=== PATIENT | male | born 1970 ===

== ENCOUNTER 2019-02-18 00:13 | Observation (INO) ==
[2019-02-18] MEDS ORDERED: Nitroglycerin 0.4 MG TAB.SUBL SL PRN (01:24)
[2019-02-18] MEDS ORDERED: Aspirin 81 MG TAB.CHEW PO ONE (01:24)
[2019-02-18 01:27] LABS: Basophils # 0.1 K/mcL (0.0-0.2); Basophils % 0.8 %; Eosinophils # 0.7 K/mcL (0.0-0.6); Eosinophils % 5.3 %; Hematocrit 41.3 % (37.5-50.1); Hemoglobin 13.3 g/dL (12.9-16.9); Immature Granulocytes % 0.2 % (0-4); Lymphocytes # 3.6 K/mcL (0.6-4.6); Lymphocytes % 29.2 %; Mean Corpuscular HGB Conc 32.2 g/dL (31.6-35.5); Mean Corpuscular Hemoglobin 29.3 pg (28.0-33.3); Mean Platelet Volume 11.3 fL (9.4-12.4); Monocytes # 0.9 K/mcL (0.0-1.3); Monocytes % 7.6 %; Neutrophils # 7.1 K/mcL (1.6-8.9); Platelet Count 287 K/mcL (140-400); Red Blood Count 4.54 M/mcL (4.19-5.50); Red Cell Distribution Width 14.5 % (11.5-14.5); Segmented Neutrophils % 56.9 %
--- NOTE | 2019-02-18 01:46 | Emergency Department Note ---
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 Patient states that he was seen by his primary care physician on Tuesday who performed a physical exam but did not perform any testing and stated that he should get checked out. Patient came to the emergency department tonight because it was weighing on his mind that something might be wrong. Patient describes his pain as sharp in nature, coming and going, does not seem to be related to exertion, he cannot make the pain better, he cannot make the pain worse. Patient was prescribed nitroglycerin for this pain but did not try any while at home because he states that this medication "scares him". Patient is denying associated symptoms of nausea, vomiting, diaphoresis. Patient is complaining of some mild lightheadedness. Severity scale (1-10): 6 - Related Data Home Medications Medication Instructions Recorded Confirmed Aspirin [Adult Aspirin] 81 mg PO DAILY 10/09/18 10/10/18 Baclofen [Lioresal] 10 mg PO TID PRN 10/09/18 10/10/18 Cilostazol [Pletal] 100 mg PO BID 10/09/18 10/10/18 Levothyroxine [Synthroid] 125 mcg PO 0630 10/09/18 10/10/18 Omeprazole [PriLOSEC] 40 mg PO DAILY 10/09/18 10/10/18 clonazePAM [Klonopin] 1 mg PO BID PRN 10/09/18 10/10/18 Cholecalciferol (D-3) [Vitamin D] 5,000 unit PO QAM 10/10/18 10/10/18 Citalopram Hydrobromide 10 mg PO DAILY 10/10/18 10/10/18 [Citalopram HBr] raNITIdine HCl [Zantac] 150 mg PO HS 10/10/18 10/10/18 Allergies Allergy/AdvReac Type Severity Reaction Status Date / Time Sulfa (Sulfonamide Allergy Anaphylaxis Verified 02/18/19 00:18 Antibiotics) Review of Systems: All systems ED: reviewed and negative except as stated. Constitutional: Denies: fever, chills ENT ED: Denies: ear pain, throat pain Cardiovascular: Denies: palpitations Reports: chest pain Respiratory: Denies: cough, dyspnea Gastrointestinal: Denies: abdominal pain, nausea, vomiting, diarrhea, constipation Genitourinary: Denies: urgency, dysuria, frequency Musculoskeletal: Denies: back pain, neck pain Integumentary: Denies: rash, abrasion Neurological: Denies: headache, weakness, numbness, paresthesias Reports: lightheadedness Psychiatric: Denies: anxiety, depression Endocrine: Denies: fatigue, heat or cold intolerance Hematological/Lymphatic: Denies: easy bleeding, easy bruising Allergic/Immunologic: Denies: facial swelling, urticaria Chest Pain PMH - Past Medical History Medical history: Reports: arthritis, coronary artery disease, peripheral artery disease, thyroid disease, other Surgical history: Reports: no surgical history Psychiatric history: Reports: anxiety - Social History Smoking Status: Current every day smoker Alcohol use: Reports: occasionally Drug use: Reports: none Physical Exam General: A&O x 3. No acute distress. Well developed, well nourished. Head: atraumatic, normocephalic. ENT: No conjunctival injection, no scleral icterus. PERRLA. EOMI. Oropharynx non- erythematous. mucous membranes tacky. Neuro: No focal deficits, no speech deficit, no facial droop, mentating well. BUE/BLE Str 5/5. Pulm: Lungs CTAB A/P. No wheezes, rales, ronchi. Cardio: RRR no m/r/g. Chest not tender to palpation. Abd: Soft, non-distended. Normoactive bowel sounds. Non-tender to palpation. No guarding. Non rigid. Extremities: Radial pulses 2+ lexy, dorsalis pedis/posterior tibialis 2+ lexy. No LE edema. No cyanosis, clubbing. Skin: warm, dry, intact. No rashes. Psych: Appropriate mood and affect. Answers questions appropriately. Cooperative with exam. - General Limitations: no limitations General appearance: alert Course Course Narrative: Will perform chest pain workup. Suspect admission. Vital Signs Temperature 97.8 F 02/18/19 00:21 Pulse Rate 68 02/18/19 00:21 Respiratory Rate 20 02/18/19 00:21 Blood Pressure 107/69 02/18/19 00:21 O2 Sat by Pulse Oximetry 99 02/18/19 00:21 Temperature 97.8 F 02/18/19 00:21 Pulse Rate 57 02/18/19 02:43 Respiratory Rate 16 02/18/19 02:43 Blood Pressure 111/72 02/18/19 02:43 O2 Sat by Pulse Oximetry 96 02/18/19 02:43 Oxygen Delivery Oxygen Delivery Room Air Chest Pain - MDM Narrative Medical decision making narrative: Pts troponin was elevated at 0.04. CXR did not show any acute cardiopulmonary processes. EKG did not demonstrate any findings consistent with ischemia. The rest of the lab work was unremarkable. Pt could benefit from further workup given his cardiac history. Pt was admitted to hospitalist, Dr. Moe, who agreed to accept the pt to his service. Patient was given an opportunity to ask questions at bedside and all of their concerns were addressed. Patient verbalized understanding and agreement with plan of care. Pt remained stable while in the department. - Medical Records Medical records reviewed: Yes I reviewed the patient's medical records. - Lab Data Lab results reviewed: Yes I reviewed the patient's lab results. Result diagrams: 02/18/19 01:12 02/18/19 01:12 Lab Results 02/18/19 02/18/19 02/18/19 Range/Units 01:12 01:12 01:13 WBC 12.4 H (4.3-11.1) K/mcL RBC 4.54 (4.19-5.50) M/mcL Hgb 13.3 (12.9-16.9) g/dL Hct 41.3 (37.5-50.1) % MCV 91.0 (83.0-100.0) fL MCH 29.3 (28.0-33.3) pg MCHC 32.2 (31.6-35.5) g/dL RDW 14.5 (11.5-14.5) % Plt Count 287 (140-400) K/mcL MPV 11.3 (9.4-12.4) fL Immature Gran % 0.2 (0-4) % Seg Neutrophils % 56.9 % Lymphocytes % 29.2 % Monocytes % 7.6 % Eosinophils % 5.3 % Basophils % 0.8 % Neutrophils # 7.1 (1.6-8.9) K/mcL Lymphocytes # 3.6 (0.6-4.6) K/mcL Monocytes # 0.9 (0.0-1.3) K/mcL Eosinophils # 0.7 H (0.0-0.6) K/mcL Basophils # 0.1 (0.0-0.2) K/mcL PT 11.3 (9.4-12.1) Seconds INR 1.0 APTT 37.5 H (26.0-36.0) Seconds Sodium 139 (136-145) mEq/L Potassium 3.8 (3.5-5.1) mEq/L Chloride 108 H (98-107) mEq/L Carbon Dioxide 22 L (23-29) mEq/L BUN 16 (6-20) mg/dL Creatinine 1.02 (0.70-1.30) mg/dL Est GFR ( Amer) > 60 (> 60) Est GFR (Non-Af Amer) > 60 (> 60) BUN/Creatinine Ratio 16 (6-26) Glucose 114 H (70-105) mg/dL Calculated Osmolality 290 (280-300) Calcium 9.3 (8.6-10.3) mg/dL Total Bilirubin 0.3 (0.3-1.0) mg/dL AST 20 (13-39) Units/L ALT 24 (7-52) Units/L Alkaline Phosphatase 124 H (34-104) Units/L Troponin I 0.04 H* (< 0.04) ng/mL B-Natriuretic Peptide (Less than 100) pg/mL Serum Total Protein 7.1 (6.4-8.9) g/dL Albumin 4.1 (3.5-5.7) g/dL Globulin 3.0 (2.4-3.5) g/dL Albumin/Globulin Ratio 1.4 (1.1-2.2) Urine Color (Yellow) Urine Clarity (Clear) Urine pH (5.0-8.0) pH Units Ur Specific [place] (1.010-1.025) Urine Protein (Neg-Trace) mg/dL Urine Glucose (UA) (Normal) mg/dL Urine Ketones (Negative) mg/dL Urine Blood (Negative) Urine Nitrite (Negative) Urine Bilirubin (Negative) Urine Urobilinogen (Normal) mg/dL Ur Leukocyte Esterase (Negative) Ur Culture Indicated? (NO) 02/18/19 02/18/19 Range/Units 01:13 01:50 WBC (4.3-11.1) K/mcL RBC (4.19-5.50) M/mcL Hgb (12.9-16.9) g/dL Hct (37.5-50.1) % MCV (83.0-100.0) fL MCH (28.0-33.3) pg MCHC (31.6-35.5) g/dL RDW (11.5-14.5) % Plt Count (140-400) K/mcL MPV (9.4-12.4) fL Immature Gran % (0-4) % Seg Neutrophils % % Lymphocytes % % Monocytes % % Eosinophils % % Basophils % % Neutrophils # (1.6-8.9) K/mcL Lymphocytes # (0.6-4.6) K/mcL Monocytes # (0.0-1.3) K/mcL Eosinophils # (0.0-0.6) K/mcL Basophils # (0.0-0.2) K/mcL PT (9.4-12.1) Seconds INR APTT (26.0-36.0) Seconds Sodium (136-145) mEq/L Potassium (3.5-5.1) mEq/L Chloride (98-107) mEq/L Carbon Dioxide (23-29) mEq/L BUN (6-20) mg/dL Creatinine (0.70-1.30) mg/dL Est GFR ( Amer) (> 60) Est GFR (Non-Af Amer) (> 60) BUN/Creatinine Ratio (6-26) Glucose (70-105) mg/dL Calculated Osmolality (280-300) Calcium (8.6-10.3) mg/dL Total Bilirubin (0.3-1.0) mg/dL AST (13-39) Units/L ALT (7-52) Units/L Alkaline Phosphatase (34-104) Units/L Troponin I (< 0.04) ng/mL B-Natriuretic Peptide 36 (Less than 100) pg/mL Serum Total Protein (6.4-8.9) g/dL Albumin (3.5-5.7) g/dL Globulin (2.4-3.5) g/dL Albumin/Globulin Ratio (1.1-2.2) Urine Color Yellow (Yellow) Urine Clarity Clear (Clear) Urine pH 6.0 (5.0-8.0) pH Units Ur Specific [place] 1.012 (1.010-1.025) Urine Protein Negative (Neg-Trace) mg/dL Urine Glucose (UA) Normal (Normal) mg/dL Urine Ketones Negative (Negative) mg/dL Urine Blood Negative (Negative) Urine Nitrite Negative (Negative) Urine Bilirubin Negative (Negative) Urine Urobilinogen Normal (Normal) mg/dL Ur Leukocyte Esterase Negative (Negative) Ur Culture Indicated? NO (NO) - Radiology Data Radiology results reviewed: Yes I reviewed the patient's radiology results. Chest X-Ray 02/18/19 01:24 IMPRESSION: Negative portable chest. D/ / Stephen Guzman MD / Stephen Guzman MD Interpreting Provider: Stephen Guzman MD - EKG Data EKG attestation: Yes I reviewed and interpreted this EKG. EKG results narrative: HR 66, rhythm sinus, axis normal. LA 176, QRS 109, QTc 437. No evidence of ST elevation or depression. Heart Score - Score History: Moderately Suspicious EKG: Non Specific repolarisation Disturbance Age: 45-65 Risk Factors: Equal/Greater than 3 risk factor or history of atherosclerotic disease Troponin: 1-3x normal limit HEART Score Total: 6 Attestation Statement - Attestation Attestation: I, Micha Nickerson DO, examined this patient [id number] and my medical decision-making was reviewed with Dr. Cornelia Muhammad, Resident Physician. I agree with the documented findings, disposition and treatment plan as described except to the extent set forth below. I personally supervised and was present for the ulrich/critical portions of the procedures completed by the resident documented below. Please see my progress notes for details.
[2019-02-18 01:47] LABS: Alanine Aminotransferase 24 Units/L (7-52); Albumin 4.1 g/dL (3.5-5.7); Albumin/Globulin Ratio 1.4 (1.1-2.2); Alkaline Phosphatase 124 Units/L (34-104); Aspartate Amino Transferase 20 Units/L (13-39); BUN/Creatinine Ratio 16 (6-26); Bilirubin,Total 0.3 mg/dL (0.3-1.0); Blood Urea Nitrogen 16 mg/dL (6-20); Calcium 9.3 mg/dL (8.6-10.3); Carbon Dioxide 22 mEq/L (23-29); Chloride 108 mEq/L (98-107); Glucose 114 mg/dL (70-105); Osmolality,Calculated 290 (280-300); Potassium 3.8 mEq/L (3.5-5.1); Sodium 139 mEq/L (136-145); Total Protein 7.1 g/dL (6.4-8.9); eGFR For Non-African Americans > 60 (> 60)
[2019-02-18 02:00] LABS: Prothrombin Time 11.3 Seconds (9.4-12.1)
[2019-02-18 02:00] LABS: Troponin I 0.04 ng/mL (< 0.04)
[2019-02-18 02:00] LABS: Bilirubin,Urine Negative (Negative); Blood,Urine Negative (Negative); Clarity,Urine Clear (Clear); Color,Urine Yellow (Yellow); Glucose,Urine (UA) Normal (Normal); Ketones,Urine Negative (Negative); Leukocyte Esterase,Urine Negative (Negative); Nitrite,Urine Negative (Negative); Protein,Urine Negative (Neg-Trace); Specific Gravity,Urine 1.012 (1.010-1.025); Urobilinogen,Urine Normal (Normal)
[2019-02-18 02:03] LABS: Activated Partial Thrombo Time 37.5 Seconds (26.0-36.0)
--- NOTE | 2019-02-18 04:06 | Emergency Department Note ---
Disposition Clinical Impression: Elevated troponin Chest pain Qualifiers: Chest pain type: unspecified Qualified Code(s): R07.9 - Chest pain, unspecified Disposition: Admitted As Inpatient Condition: Fair Referrals: Rosa Maria Mayer MD [Primary Care Provider] - Time of Disposition: 04:06 General Adult HPI - General Chief complaint: ED Chest Pain Stated complaint: CP, Bilat Jaw/R Neck Pain x 4days Time Seen by Provider: 02/18/19 01:23 Source: patient Mode of arrival: private vehicle Limitations: no limitations - History of Present Illness Pain Scale: 6 - Related Data Home Medications Medication Instructions Recorded Confirmed Aspirin [Adult Aspirin] 81 mg PO DAILY 10/09/18 10/10/18 Baclofen [Lioresal] 10 mg PO TID PRN 10/09/18 10/10/18 Cilostazol [Pletal] 100 mg PO BID 10/09/18 10/10/18 Levothyroxine [Synthroid] 125 mcg PO 0630 10/09/18 10/10/18 Omeprazole [PriLOSEC] 40 mg PO DAILY 10/09/18 10/10/18 clonazePAM [Klonopin] 1 mg PO BID PRN 10/09/18 10/10/18 Cholecalciferol (D-3) [Vitamin D] 5,000 unit PO QAM 10/10/18 10/10/18 Citalopram Hydrobromide 10 mg PO DAILY 10/10/18 10/10/18 [Citalopram HBr] raNITIdine HCl [Zantac] 150 mg PO HS 10/10/18 10/10/18 Allergies Allergy/AdvReac Type Severity Reaction Status Date / Time Sulfa (Sulfonamide Allergy Anaphylaxis Verified 02/18/19 00:18 Antibiotics) Past Medical History - Past Medical History Medical history: Reports: arthritis, coronary artery disease, peripheral artery disease, thyroid disease, other Surgical history: Reports: no surgical history Psychiatric history: Reports: anxiety - Social History Smoking Status: Current every day smoker Smokeless Tobacco Status: No Alcohol use: Reports: occasionally Drug use: Reports: none Physical Exam - General Limitations: no limitations General appearance: alert Course Vital Signs Temperature 97.8 F 02/18/19 00:21 Pulse Rate 68 02/18/19 00:21 Respiratory Rate 20 02/18/19 00:21 Blood Pressure 107/69 02/18/19 00:21 O2 Sat by Pulse Oximetry 99 02/18/19 00:21 Temperature 97.8 F 02/18/19 00:21 Pulse Rate 57 02/18/19 02:43 Respiratory Rate 16 02/18/19 02:43 Blood Pressure 111/72 02/18/19 02:43 O2 Sat by Pulse Oximetry 96 02/18/19 02:43 Oxygen Delivery Oxygen Delivery Room Air Medical Decision Making - Lab Data Result diagrams: 02/18/19 01:12 02/18/19 01:12 Lab Results 02/18/19 02/18/19 02/18/19 Range/Units 01:12 01:12 01:13 WBC 12.4 H (4.3-11.1) K/mcL RBC 4.54 (4.19-5.50) M/mcL Hgb 13.3 (12.9-16.9) g/dL Hct 41.3 (37.5-50.1) % MCV 91.0 (83.0-100.0) fL MCH 29.3 (28.0-33.3) pg MCHC 32.2 (31.6-35.5) g/dL RDW 14.5 (11.5-14.5) % Plt Count 287 (140-400) K/mcL MPV 11.3 (9.4-12.4) fL Immature Gran % 0.2 (0-4) % Seg Neutrophils % 56.9 % Lymphocytes % 29.2 % Monocytes % 7.6 % Eosinophils % 5.3 % Basophils % 0.8 % Neutrophils # 7.1 (1.6-8.9) K/mcL Lymphocytes # 3.6 (0.6-4.6) K/mcL Monocytes # 0.9 (0.0-1.3) K/mcL Eosinophils # 0.7 H (0.0-0.6) K/mcL Basophils # 0.1 (0.0-0.2) K/mcL PT 11.3 (9.4-12.1) Seconds INR 1.0 APTT 37.5 H (26.0-36.0) Seconds Sodium 139 (136-145) mEq/L Potassium 3.8 (3.5-5.1) mEq/L Chloride 108 H (98-107) mEq/L Carbon Dioxide 22 L (23-29) mEq/L BUN 16 (6-20) mg/dL Creatinine 1.02 (0.70-1.30) mg/dL Est GFR ( Amer) > 60 (> 60) Est GFR (Non-Af Amer) > 60 (> 60) BUN/Creatinine Ratio 16 (6-26) Glucose 114 H (70-105) mg/dL Calculated Osmolality 290 (280-300) Calcium 9.3 (8.6-10.3) mg/dL Total Bilirubin 0.3 (0.3-1.0) mg/dL AST 20 (13-39) Units/L ALT 24 (7-52) Units/L Alkaline Phosphatase 124 H (34-104) Units/L Troponin I 0.04 H* (< 0.04) ng/mL B-Natriuretic Peptide (Less than 100) pg/mL Serum Total Protein 7.1 (6.4-8.9) g/dL Albumin 4.1 (3.5-5.7) g/dL Globulin 3.0 (2.4-3.5) g/dL Albumin/Globulin Ratio 1.4 (1.1-2.2) Urine Color (Yellow) Urine Clarity (Clear) Urine pH (5.0-8.0) pH Units Ur Specific [place] (1.010-1.025) Urine Protein (Neg-Trace) mg/dL Urine Glucose (UA) (Normal) mg/dL Urine Ketones (Negative) mg/dL Urine Blood (Negative) Urine Nitrite (Negative) Urine Bilirubin (Negative) Urine Urobilinogen (Normal) mg/dL Ur Leukocyte Esterase (Negative) Ur Culture Indicated? (NO) 02/18/19 02/18/19 Range/Units 01:13 01:50 WBC (4.3-11.1) K/mcL RBC (4.19-5.50) M/mcL Hgb (12.9-16.9) g/dL Hct (37.5-50.1) % MCV (83.0-100.0) fL MCH (28.0-33.3) pg MCHC (31.6-35.5) g/dL RDW (11.5-14.5) % Plt Count (140-400) K/mcL MPV (9.4-12.4) fL Immature Gran % (0-4) % Seg Neutrophils % % Lymphocytes % % Monocytes % % Eosinophils % % Basophils % % Neutrophils # (1.6-8.9) K/mcL Lymphocytes # (0.6-4.6) K/mcL Monocytes # (0.0-1.3) K/mcL Eosinophils # (0.0-0.6) K/mcL Basophils # (0.0-0.2) K/mcL PT (9.4-12.1) Seconds INR APTT (26.0-36.0) Seconds Sodium (136-145) mEq/L Potassium (3.5-5.1) mEq/L Chloride (98-107) mEq/L Carbon Dioxide (23-29) mEq/L BUN (6-20) mg/dL Creatinine (0.70-1.30) mg/dL Est GFR ( Amer) (> 60) Est GFR (Non-Af Amer) (> 60) BUN/Creatinine Ratio (6-26) Glucose (70-105) mg/dL Calculated Osmolality (280-300) Calcium (8.6-10.3) mg/dL Total Bilirubin (0.3-1.0) mg/dL AST (13-39) Units/L ALT (7-52) Units/L Alkaline Phosphatase (34-104) Units/L Troponin I (< 0.04) ng/mL B-Natriuretic Peptide 36 (Less than 100) pg/mL Serum Total Protein (6.4-8.9) g/dL Albumin (3.5-5.7) g/dL Globulin (2.4-3.5) g/dL Albumin/Globulin Ratio (1.1-2.2) Urine Color Yellow (Yellow) Urine Clarity Clear (Clear) Urine pH 6.0 (5.0-8.0) pH Units Ur Specific [place] 1.012 (1.010-1.025) Urine Protein Negative (Neg-Trace) mg/dL Urine Glucose (UA) Normal (Normal) mg/dL Urine Ketones Negative (Negative) mg/dL Urine Blood Negative (Negative) Urine Nitrite Negative (Negative) Urine Bilirubin Negative (Negative) Urine Urobilinogen Normal (Normal) mg/dL Ur Leukocyte Esterase Negative (Negative) Ur Culture Indicated? NO (NO) Attestation Statement - Attestation Attestation: I, Micha Nickerson DO, examined this patient [id number] and my medical decision-making was reviewed with Dr. Cornelia Muhammad, Resident Physician. I agree with the documented findings, disposition and treatment plan as described except to the extent set forth below. I personally supervised and was present for the ulrich/critical portions of the procedures completed by the resident documented below. Please see my progress notes for details. 48-year-old male presents emergency room with complaint of chest pain. Patient has had a recent cardiac bypass procedure completed and September of last year. He has had intermittent chest pain on and off for the last several months. Today he had sustained chest pain despite intervention at home. He was concerned said come the emergency room for evaluation. On my evaluation at the bedside, the patient is denying chest pain shortness of breath headache vision changes nausea vomiting or diarrhea. He does not have any fevers or chills. He denies any falls trauma or injury. Patient did take nitroglycerin prior to coming in and does appear to alleviate the symptoms. Patient will have detailed workup completed this time with cardiac evaluation. Patient will have EKG chest x-ray CBC chemistry and troponin collected along with BMP and electrolytes. Patient will be provided with an aspirin. He is currently on Eliquis at home. Vital signs are stable. Patient is alert he is oriented. Oropharynx is patent. Trachea is midline. Lungs are clear. Heart is regular. Abdomen is soft nontender nondistended with no guarding no rigidity and no per itoneal symptoms at this time. No signs of pitting edema or swelling in extremities. Patient is walking around the emergency department without any distress. He does not have any exertional component to the presentation at this time. Disposition will most likely be admission secondary to the persistence the symptoms here today. Patient was informed of this and is comfortable with the plan. No other additional concerns or issues noted this point. See detailed documentation of the physical exam, medical intervention, medical decision-making and disposition in the resident physician's note. No critical care pad the patient's treatment course at this time. [id number] Patient has an elevated troponin of 0.04. He has remained chest pain-free while here. Because of the most recent bypass procedure, as well as the presenting complaint of chest pain, the patient will be admitted for monitoring. No immediate intervention has been required at this time. The hospitalist reviewed the case at length. He had no other recommendations or concerns at this time. Patient will be monitoring emergency room until the admission process is completed. Patient family are informed and they are comfortable this plan.
[2019-02-18] MEDS ORDERED: Naloxone 0.4 MG/ML INJ IVP PRN (04:51)
--- NOTE | 2019-02-18 05:28 | Internal Med History&Physical ---
Date of Encounter: 02/18/19 Time of Encounter: 04:00 Internal Medicine - H&P: HPI Chief complaint: Chest Pain Admitted From: Home Plans for Post Hospital Care: Home History of present illness: Mr. Perez is a 48 year old male with past medical history significant CAD with CABG, NSTEMI, PAD, thyroid disease, GERD, multiple sclerosis, and tobacco abuse who presents for complaints of intermittent left sided aching chest pain for past 4-5 days radiating to his bilateral shoulders and right jaw. Pain is rated at 5/10 when at its worst and typically only lasts 5-15 minutes. No identifiable exacerbating or alleviating factors. Episodes have been occurring more often over past 4-5 days but have not increased in severity. Pain is associated with shortness of breath and headache. Also states he has intermittent lightheadedness at home which he experiences chronically due to his MS and does not relate it to his recent symptoms. Has nitro at home but states he was afraid to take any. Seen PCP on Tuesday to advise to get further evaluation at hospital if symptoms continue. Pain was resolved upon arrival to [facility] so received only dose of aspirin in ER. ER reported EKG as sinus rhythm with no evidence of ST elevation or depression. ER also obtained chest xray which showed a negative portable chest. Currently denies any headache, dizziness, numbness, chest pain, shortness of breath, abdominal pain, nausea, bowel or bladder changes. In September 2018 had echocardiogram showing 40-45% EF and cardiac catheterization showing stenosis of LMCA, proximal and mid LAD, proximal circumflex, and proximal and mid RCA. He then underwent a CABG x5. Follows up regularly with [place] [facility]ology following CABG. Also follows regularly with PCP and [facility] neurology. Past Med Surg Social Fam HX - Past Medical History Medical history: arthritis, coronary artery disease, GERD, peripheral artery disease, thyroid disease, other Additional medical history: Multiple Sclerosis Psychiatric history: anxiety - Past Surgical History Surgical History: no surgical history Additional surgical history: CABG x 5v - Social History Smoking Status: Current every day smoker Smokeless Tobacco Status: No Alcohol use: occasionally Drug use: none - Family History Mother Living Status: Hx Family Cardiac Disorders: Yes (Triple Bypass) Hx Family Respiratory Disorders: Yes (Lung Cancer) Brother Living Status: Still Living Hx Family Cardiac Disorders: Yes (premature CAD < 50) Internal Medicine - H&P: Meds Aspirin [Adult Aspirin] 81 mg PO DAILY 10/09/18 [History] Cilostazol [Pletal] 100 mg PO BID 10/09/18 [History] Levothyroxine [Synthroid] 125 mcg PO 0630 10/09/18 [History] Omeprazole [PriLOSEC] 40 mg PO DAILY 10/09/18 [History] clonazePAM [Klonopin] 1 mg PO BID PRN 10/09/18 [History] Cholecalciferol (D-3) [Vitamin D] 5,000 unit PO QAM 10/10/18 [History] Citalopram Hydrobromide [Citalopram HBr] 10 mg PO DAILY 10/10/18 [History] raNITIdine HCl [Zantac] 150 mg PO HS 10/10/18 [History] Allergy/AdvReac Type Severity Reaction Status Date / Time Sulfa (Sulfonamide Allergy Anaphylaxis Verified 02/18/19 00:18 Antibiotics) All Systems PM: A 10-system review of systems was performed and is negative for pertinent findings except as documented above in the HPI. - Constitutional Vitals: Temp Pulse Resp BP Pulse Ox 97.8 F 51 20 97/55 99 02/18/19 00:21 02/18/19 03:30 02/18/19 04:30 02/18/19 04:30 02/18/19 03:30 Exam: General: Alert and oriented. Skin:Normal color, no rash, no lesions. HEENT:Pupils equal, round and reactive. Cardiovascular:Normal S1 & S2, no rubs, murmurs or gallops. No JVD. Pulse regular. Chest wall remains tender to palpation since CABG. Lungs:Normal breath sounds, no wheezes or crackles. Abdomen:Soft, non-tender, no rigidity. Extremities:No deformity, no edema or tenderness, no joint swelling or clubbing. Neurological:Normal cognition and motor skills. Pulses:Carotid and radial pulses normal +2. Rest of the physical exam is non contributory. Internal Med - H&P Results - Labs CBC & Chem 7: 02/18/19 01:12 02/18/19 01:12 Labs: Short CBC 02/18/19 Range/Units 01:12 WBC 12.4 H (4.3-11.1) K/mcL Hgb 13.3 (12.9-16.9) g/dL Hct 41.3 (37.5-50.1) % Plt Count 287 (140-400) K/mcL Neutrophils # 7.1 (1.6-8.9) K/mcL BMP 02/18/19 01:12 Sodium 139 Potassium 3.8 Chloride 108 H Carbon Dioxide 22 L BUN 16 Creatinine 1.02 Glucose 114 H Calcium 9.3 Cardiac Enzymes 02/18/19 Range/Units 01:12 Troponin I 0.04 H* (< 0.04) ng/mL Liver Function 02/18/19 Range/Units 01:12 Total Bilirubin 0.3 (0.3-1.0) mg/dL AST 20 (13-39) Units/L ALT 24 (7-52) Units/L Alkaline Phosphatase 124 H (34-104) Units/L Albumin 4.1 (3.5-5.7) g/dL Urine 02/18/19 Range/Units 01:50 Urine Color Yellow (Yellow) Urine Clarity Clear (Clear) Urine pH 6.0 (5.0-8.0) pH Units Ur Specific [place] 1.012 (1.010-1.025) Urine Protein Negative (Neg-Trace) mg/dL Urine Glucose (UA) Normal (Normal) mg/dL - Impressions ITS Impressions Chest X-Ray 02/18/19 01:24 IMPRESSION: Negative portable chest. D/ / Stephen Guzman MD / Stephen Guzman MD Interpreting Provider: Stephen Guzman MD - Assessment and Plan (1) Chest pain Current Visit: Yes Status: Acute Assessment and plan: Resolved since presentation to ER. ER reported EKG as sinus rhythm with no evidence of ST elevation or depression. Initial troponin 0.04, serial troponins ordered. Continuous cardiac monitoring. Cardiology consult ordered, will need called in a.m. Qualifiers: Chest pain type: unspecified Qualified Code(s): R07.9 - Chest pain, unspecified (2) Increased white blood cell count Current Visit: Yes Status: Acute Assessment and plan: Slightly elevated at 12.4 No signs of infection. Chest xray and UA negative. Repeat labs ordered. Qualifiers: Leukocytosis type: unspecified Qualified Code(s): D72.829 - Elevated white blood cell count, unspecified (3) Multiple sclerosis Current Visit: No Status: Chronic Assessment and plan: Continue follow up with [facility]. (4) Tobacco abuse Current Visit: Yes Status: Chronic Assessment and plan: Cessation strongly encouraged. - Time Spent With Patient Total time spent is greater than 50% in coordination of care (as documented) at patient's floor/unit and/or counseling patient:
[2019-02-18] MEDS ORDERED: clonazePAM 1 MG TABLET PO PRN (07:36)
[2019-02-18] MEDS ORDERED: Cholecalciferol (D-3) 1,000 UNIT TABLET PO SCH (09:00)
[2019-02-18] MEDS ORDERED: Aspirin Enteric Coated 81 MG Tablet PO SCH (09:00)
--- NOTE | 2019-02-18 10:52 | Cardiology Consult Note ---
Addendum entered and electronically signed by Arron Rosales MD 02/18/19 12:14: I examined this patient and my medical decision-making was reviewed with the HOTEL RESERVATION AGENT. I agree with the documented findings, disposition and treatment plan as described except to the extent set forth below. A/P: Anginal equivalent Flat troponin CAD sp CABG Patient states he feels great and has been ambulating the hallways. No chest/jaw/arm discomfort currently. Echo pending with third troponin Thank you for the consult and allowing me to participate in your patient's care Arron Rosales MD [facility] Addendum entered and electronically signed by Jaswant Chavez CNP 02/18/19 11:52: Rediscussed with Dr. Rosales. Stay for third troponin and echo. Addendum entered and electronically signed by Jaswant Chavez CNP 02/18/19 11:43: Discussed with Dr. Rosales. Start Imdur 30mg daily. Cancel stress test. Okay to d/c home today. Cardiology signing off. Reconsult PRN. Will coordinate outpt follow-up in 2-w3 weeks. Original Note: Date of Encounter: 02/18/19 Time of Encounter: 10:50 Assessment and Plan (1) Anginal equivalent Current Visit: Yes Status: Acute Intermittent neck/shoulder/jaw/head discomfort for the past 4-5 days, similar to his prior anginal equivalent, but not as severe. Denies actual chest pain. Reports feeling well today and since admission. Troponin 0.04 x2--borderline, nondiagnostic for ACS. TTE 10/09/18: LVEF 45-50%. Mild cLVH. Mild LVDD. Mild global and segmental left ventricular systolic dysfunction. Normal RV structure and function. Trace Arabella 09/2018 severe 3V CAD with subsequent CABG x 5. ECG no ischemic changes. Will repeat TTE. Continue ASA, Statin, BB. Will consider adding Imdur 30mg daily. Hospitalist ordered stress test. Will discuss and review with Dr. Rosales to see if we should proceed with stress. (2) Elevated troponin Current Visit: Yes Status: Acute Troponin 0.04 x 2. Borderline, nondiagnostic for ACS. Discussion w patient/family: The assessment and plan as outlined above was discussed with the patient and/or family members who expressed understanding and agreement. All questions were answered. Thank you for involving us in the care of your patient. Please call with any questions. History of Present Illness Consult date: 02/18/19 Consult reason: troponins, anginal equivalent History of present illness: Mr. Perez is a 48 year old male with PMH of CAD s/p CABG x5 09/2018, PAD, thyroid disease, GERD, multiple sclerosis, and tobacco abuse who presents for complaints of intermittent neck/shoulder/jaw/head discomfort for the past 4-5 days, similar to his prior anginal equivalent. Reports feeling well today and since admission. Troponin 0.04 x2. Cardiology consulted for further recs. Prior CV testing: TTE 10/09/18: LVEF 45-50%. Mild cLVH. Mild LVDD. Mild global and segmental left ventricular systolic dysfunction. Normal RV structure and function. Trace MR. DOUGLAS 09/2018 severe 3V CAD with subsequent CABG x 5. Past Med Surg Social Fam HX - Past Medical History Medical history: arthritis, coronary artery disease, GERD, peripheral artery disease, thyroid disease, other Additional medical history: Multiple Sclerosis Psychiatric history: anxiety - Past Surgical History Surgical History: coronary bypass (CABG) Additional surgical history: CABG x 5v - Social History Smoking Status: Current every day smoker Packs per day: 1 Smokeless Tobacco Status: No Alcohol use: occasionally Drug use: none - Family History Mother Living Status: Hx Family Cardiac Disorders: Yes (Triple Bypass) Hx Family Respiratory Disorders: Yes (Lung Cancer) Brother Living Status: Still Living Hx Family Cardiac Disorders: Yes (premature CAD < 50) Medications and Allergies Aspirin [Adult Aspirin] 81 mg PO DAILY 10/09/18 [History] Cilostazol [Pletal] 100 mg PO BID 10/09/18 [History] Levothyroxine [Synthroid] 125 mcg PO 0630 10/09/18 [History] Omeprazole [PriLOSEC] 40 mg PO DAILY 10/09/18 [History] clonazePAM [Klonopin] 1 mg PO BID PRN 10/09/18 [History] Cholecalciferol (D-3) [Vitamin D] 5,000 unit PO QAM 10/10/18 [History] Citalopram Hydrobromide [Citalopram HBr] 10 mg PO DAILY 10/10/18 [History] raNITIdine HCl [Zantac] 150 mg PO HS 10/10/18 [History] Allergy/AdvReac Type Severity Reaction Status Date / Time Sulfa (Sulfonamide Allergy Anaphylaxis Verified 02/18/19 00:18 Antibiotics) All Systems Review: The remainder of the systems were reviewed and are negative - Cardiovascular Cardiovascular: as per HPI, radiating jaw, neck or arm pain Physical Examination Vital Signs, Last 4 Hours Temp Pulse Resp BP Pulse Ox 02/18/19 07:32 97 02/18/19 06:53 97.7 F 69 17 106/67 97 Vital Signs Temp Pulse Resp BP Pulse Ox 02/18/19 07:32 97 02/18/19 06:53 97.7 F 69 17 106/67 97 02/18/19 05:16 92 02/18/19 05:02 97.5 F L 55 14 104/67 97 02/18/19 04:30 20 97/55 02/18/19 03:30 51 20 93/67 99 02/18/19 03:00 51 20 110/74 99 02/18/19 02:43 57 16 111/72 96 02/18/19 02:00 98 02/18/19 00:21 97.8 F 68 20 107/69 99 Intake and Output 02/17/19 02/18/19 02/18/19 23:59 07:59 15:59 Other: Meal NPO Weight 107.6 kg Patient Weight 02/18/19 23:59 Weight 107.6 kg General: Conversant, No Apparent Distress HEENT: Atraumatic, Normocephaly, Mucus Membranes Moist Neck: No JVD, Normal carotid pulses Cardiac: Reg Rate and Rhythm, Normal S1 and S2, No Murmur Lungs: Normal Breath Sounds, No Wheeze, Rales, Rhonchi Neuro: Alert and responsive, No focal deficits noted Abdomen: Soft, Non-Tender Skin: No rashes noted on visualized skin Musculoskeletal: No Chest Wall Tenderness Extremities: No Clubbing, No Cyanosis, No Edema, Normal Pulses Results 02/18/19 01:12 02/18/19 01:12 Lab Results 02/18/19 02/18/19 02/18/19 01:12 01:12 01:13 WBC 12.4 H Hgb 13.3 Hct 41.3 Plt Count 287 INR 1.0 APTT 37.5 H Sodium 139 Potassium 3.8 Chloride 108 H Carbon Dioxide 22 L BUN 16 Creatinine 1.02 Glucose 114 H Calcium 9.3 Total Bilirubin 0.3 AST 20 ALT 24 Alkaline Phosphatase 124 H Troponin I 0.04 H* B-Natriuretic Peptide 02/18/19 02/18/19 01:13 08:29 WBC Hgb Hct Plt Count INR APTT Sodium Potassium Chloride Carbon Dioxide BUN Creatinine Glucose Calcium Total Bilirubin AST ALT Alkaline Phosphatase Troponin I 0.04 H* B-Natriuretic Peptide 36 Short CBC 02/18/19 Range/Units 01:12 WBC 12.4 H (4.3-11.1) K/mcL Hgb 13.3 (12.9-16.9) g/dL Hct 41.3 (37.5-50.1) % Plt Count 287 (140-400) K/mcL Neutrophils # 7.1 (1.6-8.9) K/mcL BMP 02/18/19 Range/Units 01:12 Sodium 139 (136-145) mEq/L Potassium 3.8 (3.5-5.1) mEq/L Chloride 108 H (98-107) mEq/L Carbon Dioxide 22 L (23-29) mEq/L BUN 16 (6-20) mg/dL Creatinine 1.02 (0.70-1.30) mg/dL Glucose 114 H (70-105) mg/dL Calcium 9.3 (8.6-10.3) mg/dL Cardiac Enzymes 02/18/19 02/18/19 Range/Units 08:29 01:12 Troponin I 0.04 H* 0.04 H* (< 0.04) ng/mL Liver Function 02/18/19 Range/Units 01:12 Total Bilirubin 0.3 (0.3-1.0) mg/dL AST 20 (13-39) Units/L ALT 24 (7-52) Units/L Alkaline Phosphatase 124 H (34-104) Units/L Albumin 4.1 (3.5-5.7) g/dL Urine 02/18/19 Range/Units 01:50 Urine Color Yellow (Yellow) Urine Clarity Clear (Clear) Urine pH 6.0 (5.0-8.0) pH Units Ur Specific [place] 1.012 (1.010-1.025) Urine Protein Negative (Neg-Trace) mg/dL Urine Glucose (UA) Normal (Normal) mg/dL Impressions Chest X-Ray 02/18/19 01:24 IMPRESSION: Negative portable chest. D/ / Stephen Guzman MD / Stephen Guzman MD Interpreting Provider: Stephen Guzman MD Active Medications Aspirin (Aspirin Ec) 81 mg PO DAILY [facility] Stop: 08/20/19 09:01 Last Admin: 02/18/19 10:14 Dose: 81 mg Cilostazol (Pletal) 100 mg PO BID [facility] Stop: 08/20/19 09:01 Last Admin: 02/18/19 10:15 Dose: 100 mg Citalopram Hydrobromide (Celexa) 10 mg PO DAILY [facility] Stop: 08/20/19 09:01 Last Admin: 02/18/19 10:15 Dose: 10 mg Clonazepam (Klonopin) 1 mg PO BID PRN PRN Reason: Anxiety Stop: 08/20/19 07:37 Famotidine (Pepcid) 20 mg PO HS [facility] Stop: 08/20/19 21:01 Heparin Sodium (Porcine) (Heparin) 5,000 unit SQ Q12HCO [facility] Stop: 08/20/19 18:01 Levothyroxine Sodium (Synthroid) 125 mcg PO 0630 [facility] Stop: 08/21/19 06:31 Naloxone HCl (Narcan) 0.4 mg IVP Q2M PRN PRN Reason: SEE COMMENTS Stop: 08/20/19 04:52 Nitroglycerin (Nitroglycerin) 0.4 mg SL Q5M PRN PRN Reason: Chest Pain Stop: 08/20/19 01:25 Omeprazole (Prilosec) 40 mg PO DAILY [facility] Stop: 08/20/19 09:01 Last Admin: 02/18/19 10:15 Dose: 40 mg Vitamin D (Vitamin D) 5,000 unit PO QAM [facility] Stop: 08/20/19 09:01 Last Admin: 02/18/19 10:14 Dose: 5,000 unit - Imaging and Cardiology Echo: report reviewed Cardiac cath: report reviewed - EKG Interpretation EKG results cardiology: personally reviewed (SR) Consult Discharge Plan - Plan Referrals: Rosa Maria Mayer MD [Primary Care Provider] -
[2019-02-18 11:32] VITALS: BP 124/82
[2019-02-18] MEDS ORDERED: Isosorbide MONOnitrate (24 HR) 30 MG TAB.ER.24H PO SCH (11:43)
--- NOTE | 2019-02-18 11:56 | Discharge Summary ---
- NOTES TO OUTPATIENT PROVIDER Notes to Outpatient Provider: f/u with PCP within a week. f/u with cardiology within a month. Orders not resulted at time of discharge: Pending orders 02/18/19 00:18 ECG 12 lead ECG [ECG] Stat 02/18/19 07:37 EV echocardiogram Routine 02/18/19 10:21 SP exercise nuclear stress Routine 02/18/19 10:22 NM tracey perf SPECT multi [NM] Routine 02/18/19 14:30 Troponin I Q6H 02/19/19 04:00 Basic Metabolic Panel AM 0400 Complete Blood Count [HEME] AM 0400 Date of Encounter: 02/18/19 Time of Encounter: 11:52 - Discharge Diagnosis (1) Chest pain Priority: Primary Status: Acute Qualifiers: Chest pain type: unspecified Qualified Code(s): R07.9 - Chest pain, unspecified (2) Multiple sclerosis Priority: Secondary Status: Chronic (3) Increased white blood cell count Priority: Primary Status: Acute Qualifiers: Leukocytosis type: unspecified Qualified Code(s): D72.829 - Elevated white blood cell count, unspecified (4) Tobacco abuse Priority: Secondary Status: Chronic (5) CAD (coronary artery disease) Priority: Secondary Status: Chronic Qualifiers: Coronary Disease-Associated Artery/Lesion type: unspecified vessel or lesion type [place] vs. transplanted heart: unspecified whether [place] or transplanted heart Associated angina: angina presence unspecified Qualified Code(s): I25.10 - Atherosclerotic heart disease of [place] coronary artery without angina pectoris Hospital course: Mr. Perez is a 48 year old male with past medical history significant CAD with CABG, NSTEMI, PAD, thyroid disease, GERD, multiple sclerosis, and tobacco abuse who presents for complaints of intermittent left sided aching chest pain for past 4-5 days radiating to his bilateral shoulders and right jaw. Pain is rated at 5/10 when at its worst and typically only lasts 5-15 minutes. No identifiable exacerbating or alleviating factors. Episodes have been occurring more often over past 4-5 days but have not increased in severity. Pain is associated with shortness of breath and headache. Also states he has i ntermittent lightheadedness at home which he experiences chronically due to his MS and does not relate it to his recent symptoms. Has nitro at home but states he was afraid to take any. Seen PCP on Tuesday to advise to get further evaluation at hospital if symptoms continue. Pain was resolved upon arrival to [facility] so received only dose of aspirin in ER. ER reported EKG as sinus rhythm with no evidence of ST elevation or depression. ER also obtained chest xray which showed a negative portable chest. Currently denies any headache, dizziness, numbness, chest pain, shortness of breath, abdominal pain, nausea, bowel or bladder changes. In September 2018 had echocardiogram showing 40-45% EF and cardiac catheterization showing stenosis of LMCA, proximal and mid LAD, proximal circumflex, and proximal and mid RCA. He then underwent a CABG x5. Follows up regularly with [facility] following CABG. Also follows regularly with PCP and [facility]. He was admitted for observation. Serial troponin was slightly elevated but stable, does not fit in the pattern of acute [place]. ECHO was unremarkable. Cardiology was consulted and recommended medical management. Meds were adjusted, metoprolol, statins, and isosorbide were started. Pt is discharged home today, f/u with PCP and Cardiology as scheduled. Discharge discussed with: patient Time spent discussing smoking cessation with patient: more than 10 minutes - Time Spent with Patient Total time spent providing and/or coordinating discharge services: Time spent: Greater than 30 minutes - Discharge Medications Prescriptions: New Atorvastatin [Lipitor] 40 mg PO HS #30 tablet Isosorbide MONOnitrate (24 HR) [Imdur] 30 mg PO DAILY #30 tab.er.24h Metoprolol [Lopressor] 25 mg PO BID #60 tablet Nitroglycerin 0.4 mg SL Q5M PRN #20 tab.subl PRN Reason: Chest Pain Continue Levothyroxine [Synthroid] 125 mcg PO 0630 Omeprazole [PriLOSEC] 40 mg PO DAILY Cilostazol [Pletal] 100 mg PO BID clonazePAM [Klonopin] 1 mg PO BID PRN PRN Reason: Anxiety Aspirin [Adult Aspirin] 81 mg PO DAILY Citalopram Hydrobromide [Citalopram HBr] 10 mg PO DAILY Cholecalciferol (D-3) [Vitamin D] 5,000 unit PO QAM raNITIdine HCl [Zantac] 150 mg PO HS Home Medications: Aspirin [Adult Aspirin] 81 mg PO DAILY 10/09/18 [History] Cilostazol [Pletal] 100 mg PO BID 10/09/18 [History] Levothyroxine [Synthroid] 125 mcg PO 0630 10/09/18 [History] Omeprazole [PriLOSEC] 40 mg PO DAILY 10/09/18 [History] clonazePAM [Klonopin] 1 mg PO BID PRN 10/09/18 [History] Cholecalciferol (D-3) [Vitamin D] 5,000 unit PO QAM 10/10/18 [History] Citalopram Hydrobromide [Citalopram HBr] 10 mg PO DAILY 10/10/18 [History] raNITIdine HCl [Zantac] 150 mg PO HS 10/10/18 [History] Atorvastatin [Lipitor] 40 mg PO HS #30 tablet 02/18/19 [Rx] Isosorbide MONOnitrate (24 HR) [Imdur] 30 mg PO DAILY #30 tab.er.24h 02/18/19 [Rx] Metoprolol [Lopressor] 25 mg PO BID #60 tablet 02/18/19 [Rx] Nitroglycerin 0.4 mg SL Q5M PRN #20 tab.subl 02/18/19 [Rx] Allergies/Adverse Reactions: Allergy/AdvReac Type Severity Reaction Status Date / Time Sulfa (Sulfonamide Allergy Anaphylaxis Verified 02/18/19 00:18 Antibiotics) Date of admission: 02/18/19 03:46 Primary care physician: Rosa Maria Mayer MD Consults: 02/18/19 04:53 Consult to Cardiology [CONS] Routine Comment: Consulting Provider: [facility] Reason for Consult: Presents for intermittent chest pain radiating to shoulders and jaw for past 4-5 days. Follows with [facility] after having CABG in September 2018. EKG without any changes, initial troponin 0.04 Call Completed: No Anticipated date of discharge: 02/18/19 - Constitutional Vitals: Temp Pulse Resp BP Pulse Ox 97.7 F 84 17 124/82 98 02/18/19 11:31 02/18/19 11:31 02/18/19 11:31 02/18/19 11:31 02/18/19 11:31 General appearance: Present: A&O X 3 Exam: General: Alert and oriented. Skin:Normal color, no rash, no lesions. HEENT:Pupils equal, round and reactive. Cardiovascular:Normal S1 & S2, no rubs, murmurs or gallops. No JVD. Pulse regular. Chest wall remains tender to palpation since CABG. Lungs:Normal breath sounds, no wheezes or crackles. Abdomen:Soft, non-tender, no rigidity. Extremities:No deformity, no edema or tenderness, no joint swelling or clubbing. Neurological:Normal cognition and motor skills. Pulses:Carotid and radial pulses normal +2. Rest of the physical exam is non contributory. - Patient Status Disposition: Home, Self-Care Condition: Fair Functional capacity at discharge: independent ambulation Overall status at discharge: patient is progressing back to baseline - Discharge Instructions Follow Up With: Rosa Maria Mayer MD [Primary Care Provider] - - Diet and Activity Activity: increase activity as tolerated Diet: advance to your usual diet
--- NOTE | 2019-02-18 14:45 | Event Note ---
Date of Encounter: 02/18/19 Time of Encounter: 14:44 Pt was instructed that he could be discharged home today depending on the 3rd set of troponin and echo results. However, he stated that he cannot wait to leave and signed AMA form.
[2019-02-18] MEDS ORDERED: *HR* Heparin 5,000 UNIT/ML VIAL SQ SCH (18:00)
[2019-02-18] MEDS ORDERED: Famotidine 20 MG TABLET PO SCH (21:00)
--- NOTE | 2019-02-19 16:38 | Electrocardiograph Report ---
[address] [address] Test Date: 2019-02-18 Pat Name: Teodoro Perez Department: 104 Room: 3B16 Gender: M Rental Clerk: [id number] : 1970 Requested By: Micha Nickerson Order Number: [id number] Reading MD: Anat Petersen Measurements Intervals [place] Rate: 66 P: 8 WA: 176 QRS: -15 QRSD: 109 T: 59 QT: 424 QTc: 437 Interpretive Statements SINUS RHYTHM LOW QRS VOLTAGE IN PRECORDIAL LEADS INCOMPLETE RIGHT BUNDLE BRANCH BLOCK Electronically Signed On 02-19-2019 16:36:43 EDT by Anat Petersen
== END 2019-02-18 12:34 | disposition left against medical advice (07) ==
LOC: 3BNU 00:13 → EMEROOARM 00:13 → 3BNU 04:44
PROVIDERS: ADMIT Family Medicine; ATTEND Student in an Organized Health Care Education/Training Program